=== PATIENT | male | born 1960 | race Caucasian/White ===

== ENCOUNTER 2017-04-21 07:56 | Day surgery (SDC) | payer BC, OTHER ==
--- NOTE | 2017-04-21 08:53 | PCM.PREANE ---
Preanesthetic Assessment - Anesthesia/Transfusion/Family Hx Anesthesia History: Prior Anesthesia Without Reaction Family History of Anesthesia Reaction: No Transfusion History: No Prior Transfusion(s) Intubation History: Unknown - Review of Systems General: No Symptoms Pulmonary: No Symptoms Cardiovascular: No Symptoms Gastrointestinal: No Symptoms Neurological: No Symptoms Other: Reports: None - Physical Assessment NPO Status Date: 04/20/17 NPO Status Time: 20:00 O2 Sat by Pulse Oximetry: 95 Respiratory Rate: 16 Vital Signs: Last Vital Signs Temp 36.2 C 04/21/17 07:58 Pulse 80 04/21/17 07:58 Resp 16 04/21/17 07:58 BP 120/64 04/21/17 07:58 Pulse Ox 95 04/21/17 07:58 Height: 1.78 m Weight: 122.016 kg ASA Class: 3 Mental Status: Alert & Oriented x3 Airway Class: Mallampati = 3 Dentition: Reports: Normal Dentition, Partial (upper) Thyro-Mental Finger Breadths: 3 Mouth Opening Finger Breadths: 2 ROM/Head Extension: Limited/Partial Lungs: Clear to Auscultation, Normal Respiratory Effort, Decreased Breath Sounds Cardiovascular: Regular Rate, Regular Rhythm - Allergies Allergies/Adverse Reactions: Allergies Allergy/AdvReac Type Severity Reaction Status Date / Time No Known Allergies Allergy Verified 04/19/17 11:34 - Blood Blood Available: No - Anesthesia Plan Pre-Op Medication Ordered: None - Acknowledgements Anesthesia Type Planned: General Anesthesia Pt an Appropriate Candidate for the Planned Anesthesia: Yes Alternatives and Risks of Anesthesia Discussed w Pt/Guardian: Yes Pt/Guardian Understands and Agrees with Anesthesia Plan: Yes PreAnesthesia Questionnaire HEENT History: Reports: Hard of Hearing Other HEENT History: wears glasses, has upper and lower partial dentures, [employer] [employer] [place] , has hearing aides but doesn't wear them Cardiovascular History: Reports: High Cholesterol, Hypertension Respiratory History: Reports: Sleep Apnea Other Respiratory History: uses a CPAP Gastrointestinal History: Reports: GERD Genitourinary History: Reports: None Musculoskeletal History: Reports: Arthritis Other Musculoskeletal History: knees Neurological History: Reports: None Psychiatric History: Reports: Depression Endocrine/Metabolic History: Reports: Diabetes, Type II (insulin pump), Obesity/ BMI 30+ Hematologic History: Reports: None Immunologic History: Reports: None Oncologic (Cancer) History: Reports: Malignant Melanoma Other Oncologic History: current Dermatologic History: Reports: None Other Dermatologic History: current malignant melanoma - Past Surgical History Head Surgeries/Procedures: Reports: None GI Surgical History: Reports: Appendectomy, Colonoscopy Neurological Surgical History: Reports: Laminectomy Other Dermatological Surgeries/Procedures: melanoma exc. biopsy 3-4 weeks ago from right lower leg - SUBSTANCE USE Smoking Status *Q: Current Every Day Smoker (1 ppd) Tobacco Use Within Last Twelve Months: Cigarettes Recreational Drug Use History: No - HOME MEDS Home Medications: Home Meds Aspirin [Adult Low Dose Aspirin EC] 81 mg PO DAILY 04/19/17 [History] Carvedilol 3.125 mg PO DAILY 04/19/17 [History] Diclofenac Sodium [Voltaren] 50 mg PO Q4HR PRN 04/19/17 [History] Fish Oil/[place]-3 Fatty Acids [Fish Oil 1,000 MG] 1 gm PO DAILY 04/19/17 [History ] Furosemide [Lasix] 20 mg PO DAILY 04/19/17 [History] Gabapentin [Neurontin] 300 mg PO TID 04/19/17 [History] Glucosam HCl/Chondro Benitez A/C/Mn [Glucosamine-Chondroitin Cap] 1 cap PO DAILY 05/26 [History] Insulin Isophane NPH, Human [NovoLIN N] 1 dose SQ ASDIRECTED 04/19/17 [History] Multivitamins with Iron/Min [Cerovite Jr] 1 tab PO DAILY 04/19/17 [History] Omeprazole 20 mg PO DAILY 04/19/17 [History] Pioglitazone HCl [Actos] 30 mg PO DAILY 04/19/17 [History] Telmisartan 80 mg PO DAILY 04/19/17 [History] Topiramate 25 mg PO DAILY 04/19/17 [History] atorvaSTATin Calcium [Atorvastatin Calcium] 80 mg PO DAILY 04/19/17 [History] metFORMIN [Glucophage] 500 mg PO DAILY 04/19/17 [History] - CURRENT (IN HOUSE) MEDS Current Meds: Current Medications Hydrocodone Bitart/Acetaminophen ([place] 325-5 Mg) 1 tab PO Q4H PRN PRN Reason: Pain Bupivacaine HCl/Epinephrine Bitart (Marcaine 0.25%/Epinephrine 1:200,000) 30 ml INJECT ONETIME ONE Stop: 04/21/17 09:01 Cefazolin Sodium/Dextrose 2 gm (/ Premix) 50 mls @ 100 mls/hr IV ONETIME ONE Stop: 04/21/17 10:29 Lactated Ringer's (Ringers, Lactated) 1,000 mls @ 125 mls/hr IV ASDIRECTED [facility] Last Admin: 04/21/17 08:22 Dose: 125 mls/hr
[2017-04-21] MEDS ORDERED: Acetaminophen/HYDROcodone 325-5 MG Tab PO PRN (09:00)
[2017-04-21] MEDS ORDERED: Lactated Ringers 1,000 ML IV SCH (09:00)
[2017-04-21] MEDS ORDERED: Bupivacaine 0.25%/EPINEPHrine 1:200,000 10 ML SDV INJECT ONE (09:00)
[2017-04-21] MEDS ORDERED: Bupivacaine 25%/EPINEPHrine/PF 30 ML ONE (09:50)
[2017-04-21] MEDS ORDERED: ceFAZolin 2 GM in Premix Bag 1 BAG IV ONE (10:00)
--- NOTE | 2017-04-21 11:34 | NM ---
EXAMINATION: Right lower extremity lymphoscintigraphy HISTORY: Malignant melanoma COMPARISON: None TECHNIQUE: The procedure was discussed with the patient. Site of the melanoma within the lower leg wa s prepped with ChloraPrep. A total of 7 injections were performed along the periphery of the marked b iopsy site. A total of 0.5 mCi of technetium labeled sulfur colloid was used. FINDINGS: A sentinel node is identified within the right inguinal region. IMPRESSION: Successful right lower extremity lymphoscintigraphy.
[2017-04-21] MEDS ORDERED: Methylene Blue 50 MG/10 ML Ampule ONE (11:39)
[2017-04-21] MEDS ORDERED: Lidocaine 2% 5 ML SDV ONE (11:51)
[2017-04-21] MEDS ORDERED: Midazolam 1 MG/ML 2 ML SDV ONE (11:51)
[2017-04-21] MEDS ORDERED: fentaNYL 100 MCG/2 ML SDV ONE ×2 (11:51→12:49)
[2017-04-21] MEDS ORDERED: Propofol 200 MG/20 ML SDV ONE (11:51)
[2017-04-21] MEDS ORDERED: ceFAZolin 1 GM Vial ONE (11:57)
[2017-04-21] MEDS ORDERED: Sodium Chloride 0.9% 20 ML ONE (11:57)
[2017-04-21] MEDS ORDERED: Rocuronium 10 MG/ML 10 ML Syringe ONE (12:05)
[2017-04-21] MEDS ORDERED: Succinylcholine/Normal Saline 200 MG/10 ML Syringe ONE (12:05)
[2017-04-21] MEDS ORDERED: Octyl 2-Cyanoacrylate 1 Tube ONE (13:13)
[2017-04-21] MEDS ORDERED: fentaNYL 100 MCG/2 ML SDV IVPUSH PRN (13:47)
[2017-04-21] MEDS ORDERED: Acetaminophen/HYDROcodone 325-5 MG Tab PO ONE (14:53)
[2017-04-21 16:13] VITALS: BP 110/78
--- NOTE | 2017-04-24 11:15 | PCM.OPNOTE ---
- General Post-Op/Procedure Note Date of Surgery/Procedure: 04/21/17 Operative Procedure(s): excision of right leg melanoma with 2cm margins and sentinel lymph node biopsy right groin Pre Op Diagnosis: right lower leg melanoma Post-Op Diagnosis: Same Anesthesia Technique: General LMA Primary Surgeon: Marion Eli Supervisor Shipfitters: Yamilka Gutierrez Complications: None Condition: Good Free Text/Narrative:: [id number]
--- NOTE | 2017-04-24 14:52 | OR ---
SURGEON: WILI LIU MD DATE OF PROCEDURE: 04/21/2017 DIRECTOR OF SALES SUPPORT: GEOFF Marino. PREOPERATIVE DIAGNOSIS: Right lower leg melanoma with depth of 1 mm. POSTOPERATIVE DIAGNOSIS: Right lower leg melanoma with depth of 1 mm. PROCEDURE: Excision of right leg melanoma with 2 cm margin (5x8cm), complex 8cm closure, and sentinel lymph node biopsy of the right inguinal area. INDICATION: The patient is a 57-year-old gentleman with melanoma, biopsy-proven to the right lower leg. Depth is 1 mm at maximum from the excision. Risks and benefits of excision for margins and a sentinel lymph node biopsy given the depth was discussed with him. Risks were including, but not limited to, bleeding, infection, damage to underlying or overlying structures, possible need for future interventions, possible scarring. PROCEDURE IN DETAIL: After informed consent was obtained and placed on the chart, the patient was brought to the operating theater and laid in supine position. He had been previously injected with lymphoscintigraphy dye and the groin was appreciated to be the site of the sentinel node. Radioactive tracer will be used today. Attention was first paid to the sentinel lymph node in the right groin area and the center was used to locate this. Dissection was then carried down through the skin, subcutaneous tissues, and superficial fascia in order to reach the inguinal lymph node. Dissection was carried circumferentially around this and was excised without difficulty. Levels were at the 10% dean from the original injection site indicating a strong sentinel lymph node. This was exactly where visualization demonstrated to be in Radiology. Once excised, the wound was then closed with deep Monocryl stitches and a running subcuticular for the skin. This was dressed with Steri-Strips. Attention was then paid to excision of the right lower leg melanoma. A 2 cm was marked around the lesion itself of the previous biopsy site. Once marked was adjusted to be an elliptical fashion ensuring appropriate margins on all sides and the lesion was excised using a 15 blade through the skin and subcutaneous tissue down to the superficial fascia layer of the leg. Once this was completed, this was removed, marked at the 12 o'clock margin, and sent for pathology for evaluation. Once removed, the deep fascia layer was plicated and closed using a deep 3-0 Monocryl suture for tensionless closure, 3-0 Monocryl for the deep dermis, and a 3-0 Prolene in a horizontal mattress fashion for the skin. The wound was dressed with Xeroform, fluffs, and Kerlix gauze dressing and a 6-inch Chidi wrap for compression. He tolerated this well. All counts and needles were correct at the end the case. FOLLOWUP INSTRUCTIONS: The patient will see us in clinic next week or sooner if any problems, questions, or concerns. He was given a prescription for [place]. He will leave compression on and it is okay to take the dressing off after 48 hours and shower per usual. He will leave the Steri-Strip in the upper leg. HEGGTHE / CHEYENNEL /[id number] ILSA
== END 2017-04-21 16:00 | disposition home or self-care (01) ==
LOC: MW.SDS 07:56
PROVIDERS: ATTEND Plastic Surgery
DX: C43.71 Malignant melanoma of right lower limb, including hip (principal); I10 Essential (primary) hypertension; E78.00 Pure hypercholesterolemia, unspecified; E66.9 Obesity, unspecified; Z68.30 Body mass index [BMI] 30.0-30.9, adult; G47.30 Sleep apnea, unspecified; E11.9 Type 2 diabetes mellitus without complications; Z79.82 Long term (current) use of aspirin; Z79.899 Other long term (current) drug therapy; Z90.49 Acquired absence of other specified parts of digestive tract; F17.210 Nicotine dependence, cigarettes, uncomplicated
CPT/HCPCS: 11602; 13121; 13122; 38500; 78195; 82962; A9270; A9541; J0690; J2250; J3010; J7120; 00400; 88305; J2704

== ENCOUNTER 2018-01-19 15:28 | Observation (INO) | payer OTHER, BC ==
[2018-01-19] MEDS ORDERED: Sodium Chloride 0.9% 1,000 ML IV ONE (15:38)
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
[2018-01-19] MEDS ORDERED: Bacitracin Oint 1 GM U/D Packet TOP ONE (16:15)
--- NOTE | 2018-01-19 16:24 | CT ---
EXAMINATION: Non contrast CT head. Coronal and sagittal reformats. HISTORY: Syncope FINDINGS: No evidence of intra or extra axial hemorrhage, mass, midline shift, hydrocephalus or edema. No hypoattenuation changes in the major vascular territories to suggest acute infarct. No abnormal intracranial calcifications are detected. No evidence of substantial vascular calcificat ions. Paranasal sinuses and mastoid air cells are well aerated without substantial findings. Orbits and gl obes are symmetric. Pituitary fossa appears unremarkable. Calvarium is intact. No evidence of skull fracture. IMPRESSION: No acute intracranial findings.
[2018-01-19 16:40] LABS: CHLORIDE,CL 104 mmol/L (98-107); SODIUM,NA 137 mmol/L (136-148)
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
[2018-01-19] MEDS ORDERED: Aspirin 81 MG Tab.Chew PO ONE (17:06)
[2018-01-19] MEDS ORDERED: Albuterol/Ipratropium 3.0-0.5 MG/3 ML Neb Soln NEB PRN (21:45)
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
[2018-01-20] MEDS ORDERED: Gabapentin 300 MG Cap PO SCH (09:00)
[2018-01-20] MEDS ORDERED: Carvedilol 3.125 MG Tab PO SCH (09:00)
[2018-01-20] MEDS ORDERED: Aspirin 81 MG Tab.EC PO SCH (09:00)
[2018-01-20] MEDS ORDERED: metFORMIN 500 MG Tab PO SCH (09:00)
[2018-01-20] MEDS ORDERED: LIRAGLUTIDE 0.6 MG SCH (09:00)
[2018-01-20] MEDS ORDERED: atorvaSTATin 40 MG Tab PO SCH (09:00)
[2018-01-20] MEDS ORDERED: Furosemide 20 MG Tab PO SCH (09:00)
[2018-01-20 10:51] VITALS: BP 129/70
== END 2018-01-20 10:15 | disposition home or self-care (01) ==
LOC: MW.ED 15:28 → MW.MS 17:04 → UNDODISOB 01-20 10:15
PROVIDERS: ADMIT Internal Medicine; ATTEND Internal Medicine
DX: R55 Syncope and collapse (principal); I10 Essential (primary) hypertension; E11.9 Type 2 diabetes mellitus without complications; J44.9 Chronic obstructive pulmonary disease, unspecified; F17.200 Nicotine dependence, unspecified, uncomplicated; E78.00 Pure hypercholesterolemia, unspecified; E66.9 Obesity, unspecified; G47.33 Obstructive sleep apnea (adult) (pediatric); Z79.82 Long term (current) use of aspirin; Z79.4 Long term (current) use of insulin; Z79.899 Other long term (current) drug therapy; V89.2XXA Person injured in unspecified motor-vehicle accident, traffic, initial encounter
CPT/HCPCS: 36415; 70450; 71045; 73120; 80053; 82962; 84484; 85025; 93005; 96360; 99285; A9270; G0378; J7040; 99284

== ENCOUNTER 2019-08-24 08:21 | Emergency (ER) | payer BC, OTHER ==
--- NOTE | 2019-08-24 09:30 | EDM.PDOC ---
ED HPI GENERAL MEDICAL PROBLEM - General Chief Complaint: Lower Extremity Injury/Pain Stated Complaint: RT FOOT ISSUE Time Seen by Provider: 08/24/19 09:01 Source of Information: Reports: Patient, Family - History of Present Illness INITIAL COMMENTS - FREE TEXT/NARRATIVE: Complains of noticing right toe blisters last night when he came back from work. Says he has diabetic neuropathy and cannot feel anything on the soles of his feet. He has limited sensation on the dorsum of his right foot. He does not think his shoes were too tight. His later added that he does sometimes wear his shoes with no socks. Patient says he did not bleed or have drainage from the blisters. He is on antibiotics for bronchitis but does not know the names. Review of systems is negative for fever, chills, bleeding. generalized chronic Pain Score (Numeric/FACES): 4 - Related Data Allergies Allergy/AdvReac Type Severity Reaction Status Date / Time No Known Allergies Allergy Verified 08/24/19 08:39 Home Meds: Home Meds Aspirin [Adult Low Dose Aspirin EC] 81 mg PO DAILY 04/19/17 [History] Diclofenac Sodium [Voltaren] 50 mg PO Q4HR PRN 04/19/17 [History] Fish Oil/[place]-3 Fatty Acids [Fish Oil 1,000 MG] 2 gm PO DAILY 04/19/17 [History ] Furosemide [Lasix] 20 mg PO DAILY 04/19/17 [History] Gabapentin [Neurontin] 600 mg PO BID 04/19/17 [History] Omeprazole 40 mg PO DAILY 04/19/17 [History] Telmisartan 80 mg PO DAILY 04/19/17 [History] atorvaSTATin Calcium [Atorvastatin Calcium] 80 mg PO DAILY 04/19/17 [History] carvediloL [Carvedilol] 3.125 mg PO DAILY 04/19/17 [History] metFORMIN [Glucophage] 1,500 mg PO DAILY 04/19/17 [History] Cetirizine HCl [All Day Allergy] 10 mg PO DAILY 01/19/18 [History] Cholecalciferol (Vitamin D3) [Vitamin D3] 1,000 units PO DAILY 01/19/18 [History ] Liraglutide [Victoza 3-Johnson] 0.6 mg .XX DAILY 01/19/18 [History] Multivit-Min/FA/Lycopen/Lutein [Certavite Sr with Lutein Tab] 1 each PO DAILY [History] modafiniL [Modafinil] 200 mg PO DAILY 01/19/18 [History] Past Medical History HEENT History: Reports: Hard of Hearing Other HEENT History: wears glasses, has upper and lower partial dentures, [place] , has hearing aides but doesn't wear them Cardiovascular History: Reports: High Cholesterol, Hypertension Respiratory History: Reports: Sleep Apnea Other Respiratory History: uses a CPAP Gastrointestinal History: Reports: GERD Genitourinary History: Reports: None Musculoskeletal History: Reports: Arthritis Other Musculoskeletal History: knees Neurological History: Reports: None Psychiatric History: Reports: Depression Endocrine/Metabolic History: Reports: Diabetes, Type II, Obesity/BMI 30+ Hematologic History: Reports: None Immunologic History: Reports: None Oncologic (Cancer) History: Reports: Malignant Melanoma Other Oncologic History: current Dermatologic History: Reports: None Other Dermatologic History: current malignant melanoma - Infectious Disease History Infectious Disease History: Reports: Chicken Pox, Measles - Past Surgical History Head Surgeries/Procedures: Reports: None GI Surgical History: Reports: Appendectomy, Colonoscopy, Hernia, Inguinal Neurological Surgical History: Reports: Laminectomy Social & Family History - Family History Family Medical History: Noncontributory - Tobacco Use Smoking Status *Q: Current Every Day Smoker Years of Tobacco use: 45 Packs/Tins Daily: 1 - Caffeine Use Caffeine Use: Reports: Coffee Review of Systems - Review of Systems Review Of Systems: See Below (Review of systems is negative for fever, chills, bleeding. Reports chronic decr sensation on dorsum of rt foot and chronic absence of sensation on plantar aspect of rt foot.) ED EXAM, GENERAL - Physical Exam Exam: See Below Free Text/Narrative:: General: alert, well appearing, no acute distress HEENT: Atraumatic, normocephalic, pupils reactive, negative for conjunctival pallor or scleral icterus, mucous membranes moist, throat clear, handling oral secretions well. Heart: 2+ rt DP pulse; cap refill about 2 sec in toes of rt foot. Skin: Two 1 mm ecchymoses on the solar surface of the second right toe. 1 mm ecchymosis on the dorsum of the third right toe. Two one 3 to 4 mm blood- filled blisters on the dorsum of the second right toe. There are no open ulcers. Intact. Musculoskeletal: soft compartments. Extremities: Atraumatic, negative for cords or calf pain. Neuro: Awake, alert, oriented. Able to perceive light touch on the dorsal surface of the second and third right toes. Does not perceive any light touch on the plantar surface of these toes. Course - Vital Signs Last Recorded V/S: Last Vital Signs Temp 97.5 F 08/24/19 08:37 Pulse 77 08/24/19 09:42 Resp 16 08/24/19 09:42 BP 118/70 08/24/19 09:42 Pulse Ox 93 L 08/24/19 09:42 - Orders/Labs/Meds Orders: Active Orders 24 hr Category Date Time Status Ready for Discharge [RC] PER UNIT ROUTINE Care 08/24/19 09:36 Active Departure - Departure Time of Disposition: 09:34 Disposition: Home, Self-Care 01 Condition: Good Clinical Impression: Blister - Discharge Information Instructions: Blisters, Adult Referrals: Thai Ying DPM [Ordering Only Provider] - Zuly Green MD [Primary Care Provider] - Forms: ED Department Discharge Additional Instructions: Make sure to bandage the blisters well prior to putting on socks and shoes. Use Dr. Arias's Blister Treatment bandages or other similar bandages. See a steam power plant operator within one week to discuss what shoes are best for you, given your diabetes. See your primary care provider for a recheck of your feet within 3 to 5 days of this emergency department visit. The following information is given to patients seen in the emergency department who are being discharged to home. This information is to outline your options for follow-up care. We provide all patients seen in our emergency department with a follow-up referral. The need for follow-up, as well as the timing and circumstances, are variable depending upon the specifics of your emergency department visit. If you don't have a primary care physician on staff, we will provide you with a referral. We always advise you to contact your personal physician following an emergency department visit to inform them of the circumstance of the visit and for follow-up with them and/or the need for any referrals to a consulting specialist. The emergency department will also refer you to a specialist when appropriate. This referral assures that you have the opportunity for follow-up care with a specialist. All of these measure are taken in an effort to provide you with optimal care, which includes your follow-up. Under all circumstances we always encourage you to contact your private physician who remains a resource for coordinating your care. When calling for follow-up care, please make the office aware that this follow-up is from your recent emergency room visit. If for any reason you are refused follow-up, please contact the [facility] Emergency Department at and ask to speak to the emergency department charge nurse. Sepsis Event Note - Evaluation Sepsis Screening Result: No Definite Risk - Focused Exam Vital Signs: Vital Signs Pulse Resp BP Pulse Ox 08/24/19 09:42 77 16 118/70 93 L Date Exam was Performed: 08/24/19 Time Exam was Performed: 21:16 - My Orders Last 24 Hours: My Active Orders 08/24/19 09:36 Ready for Discharge [RC] PER UNIT ROUTINE - Assessment/Plan Last 24 Hours: My Active Orders 08/24/19 09:36 Ready for Discharge [RC] PER UNIT ROUTINE
[2019-08-24 09:43] VITALS: BP 118/70; PULSE 77
== END 2019-08-24 09:49 | disposition home or self-care (01) ==
LOC: MW.ED 08:21
DX: S90.424A Blister (nonthermal), right lesser toe(s), initial encounter (principal); S90.121A Contusion of right lesser toe(s) without damage to nail, initial encounter; E78.00 Pure hypercholesterolemia, unspecified; I10 Essential (primary) hypertension; K21.9 Gastro-esophageal reflux disease without esophagitis; E66.9 Obesity, unspecified; E11.40 Type 2 diabetes mellitus with diabetic neuropathy, unspecified; F17.210 Nicotine dependence, cigarettes, uncomplicated; F32.9 Major depressive disorder, single episode, unspecified; Z90.49 Acquired absence of other specified parts of digestive tract; Z79.899 Other long term (current) drug therapy; Z79.84 Long term (current) use of oral hypoglycemic drugs; Z79.82 Long term (current) use of aspirin; Z68.37 Body mass index [BMI] 37.0-37.9, adult; X58.XXXA Exposure to other specified factors, initial encounter; Y99.0 Civilian activity done for income or pay
CPT/HCPCS: 99282; 99283

== ENCOUNTER 2023-05-10 06:32 | Inpatient (IN) | payer OTHER ==
[~2023-05-10 06:32] MED LIST: Famotidine 20 MG/2 ML SDV IVPUSH SCH; Lactated Ringers 1,000 ML IV SCH; Ropivacaine 49.25 ML, Ketorolac 30 MG, EPINEPHrine 0.5 MG, cloNIDine 80 MCG in Sodium C... INJECT SCH; Tranexamic Acid 1,000 MG in Sodium Chloride 0.9% 100 ML IV SCH; ceFAZolin 2 GM in Sodium Chloride 0.9% 50 ML IV SCH
[2023-05-10] MEDS ORDERED: Tranexamic Acid IN NACL,ISO-OS 1,000 MG in Premix Bag 1 BAG IV SCH ×2 (07:00)
[2023-05-10] MEDS ORDERED: Ropivacaine 49.25 ML, Ketorolac 30 MG, EPINEPHrine 0.5 MG, cloNIDine 80 MCG in Sodium C... INJECT SCH (07:00)
[2023-05-10] MEDS ORDERED: Ketamine 500 mg/10 ML MDV ONE (07:33)
[2023-05-10] MEDS ORDERED: Famotidine 20 MG/2 ML SDV ONE (07:33)
[2023-05-10] MEDS ORDERED: propofoL 50 ML ONE ×2 (07:33→08:55)
[2023-05-10] MEDS ORDERED: fentaNYL 100 MCG/2 ML SDV ONE (07:33)
[2023-05-10] MEDS ORDERED: Ropivacaine 0.5% 5 MG/ML 30 ML SDV ONE (07:42)
[2023-05-10] MEDS ORDERED: Albuterol 0.083% 2.5 MG/3 ML Neb Soln NEB PRN (07:46)
[2023-05-10] MEDS ORDERED: Metoclopramide 10 MG/2 ML SDV IVPUSH PRN (07:46)
[2023-05-10] MEDS ORDERED: HYDROmorphone 1 MG/ML Syringe IVPUSH PRN (07:46)
[2023-05-10] MEDS ORDERED: droPERidol 5 MG/2 ML SDV IVPUSH PRN (07:46)
[2023-05-10] MEDS ORDERED: Morphine 2 MG/ML SYRINGE IVPUSH PRN ×2 (07:46→10:33)
[2023-05-10] MEDS ORDERED: Ondansetron 4 MG/2 ML SDV IVPUSH PRN ×2 (07:46→10:33)
[2023-05-10] MEDS ORDERED: Naloxone 0.4 MG/ML SDV IVPUSH PRN (07:46)
[2023-05-10] MEDS ORDERED: fentaNYL 50 MCG/ML SDV IVPUSH PRN (07:46)
[2023-05-10] MEDS ORDERED: ceFAZolin 2 GM in Sodium Chloride 0.9% 50 ML IV SCH (08:00)
[2023-05-10] MEDS ORDERED: Tranexamic Acid 1,000 MG/10 ML Vial ONE (08:44)
[2023-05-10] MEDS ORDERED: ceFAZolin 2 GM Vial ONE (08:44)
[2023-05-10] MEDS ORDERED: Propofol 200 MG/20 ML SDV ONE ×3 (09:33→09:52)
[2023-05-10] MEDS ORDERED: ePHEDrine 50 MG/ML SDV ONE (09:42)
[2023-05-10] MEDS ORDERED: EPINEPHrine 1 MG/1 ML Amp ONE (09:42)
[2023-05-10] MEDS ORDERED: Water For Injection, Sterile 40 ML ONE (09:50)
[2023-05-10] MEDS ORDERED: traMADol 50 MG Tab PO PRN (10:33)
[2023-05-10] MEDS ORDERED: diphenhydrAMINE 25 MG Cap PO PRN (10:33)
[2023-05-10] MEDS ORDERED: Sodium Chloride 0.9% 2.5 ML Syringe FLUSH PRN (10:33)
[2023-05-10] MEDS ORDERED: Aluminum Hydroxide/Magnesium Hydroxide/Simethicone XS Susp 30 ML Cup PO PRN (10:33)
[2023-05-10] MEDS ORDERED: Sodium Chloride 0.9% 10 ML Syringe FLUSH PRN (10:33)
[2023-05-10] MEDS: Acetaminophen 325 MG Tab PO SCH ×3 (14:44→20:52)
[2023-05-10] MEDS: oxyCODONE 5 MG Tab PO PRN ×2 (14:45→19:32)
[2023-05-10] MEDS ORDERED: INSULIN ASPART 100 UNIT/ML SUBCUT SCH (15:00)
[2023-05-10] MEDS ORDERED: [UNRECOGNIZED DRUG - OTHER] SUBCUT SCH (15:00)
[2023-05-10 15:06] LABS: CALCIUM 8.5 mg/dL (8.5-10.1); CARBON DIOXIDE,CO2 22.9 mmol/L (21.0-32.0); CREATININE 1.8 mg/dL (0.8-1.3); EST CRCL DRUG DOSING (CG) 42.81 mL/min; POTASSIUM,K 4.9 mmol/L (3.5-5.1)
[2023-05-10] MEDS: ceFAZolin 2 GM in Sodium Chloride 0.9% 50 ML IV SCH (15:29)
[2023-05-10] MEDS: Metoprolol Tartrate 50 MG Tab PO SCH (20:50)
[2023-05-10] MEDS: Docusate Sodium 100 MG Cap PO SCH (20:50)
[2023-05-10] MEDS: Gabapentin 300 MG Cap PO SCH (20:51)
[2023-05-10] MEDS: Aspirin 325 MG Tab PO SCH (20:56)
[2023-05-10] MEDS ORDERED: atorvaSTATin 40 MG Tab PO SCH (21:00)
[2023-05-11] MEDS: oxyCODONE 5 MG Tab PO PRN ×3 (00:20→09:25)
[2023-05-11] MEDS: Acetaminophen 325 MG Tab PO SCH ×3 (00:21→09:24)
[2023-05-11] MEDS: ceFAZolin 2 GM in Sodium Chloride 0.9% 50 ML IV SCH (00:22)
[2023-05-11 06:09] LABS: BASOPHILS ABSOLUTE AUTO 0.03 K/uL (0.00-0.20); BASOPHILS PERCENT AUTO 0.4 % (0.0-1.0); EOSINOPHILS ABSOLUTE AUTO 0.31 K/uL (0.00-0.45); EOSINOPHILS PERCENT AUTO 4.3 % (0.0-6.0); HEMATOCRIT 34.7 % (42.0-52.0); HEMOGLOBIN 11.7 g/dL (14.0-18.0); IMMATURE GRAN ABSOLUTE AUTO 0.03 K/uL (0.00-0.05); IMMATURE GRAN PERCENT AUTO 0.4 % (0.0-0.4); LYMPHOCYTES ABSOLUTE AUTO 1.28 K/uL (1.00-4.80); LYMPHOCYTES PERCENT AUTO 17.6 % (24.0-44.0); MEAN CORPUSCULAR HEMOGLOBIN 29.8 pg (28.0-32.0); MEAN CORPUSCULAR HGB CONC 33.7 g/dL (32.0-36.0); MEAN CORPUSCULAR VOLUME 88.3 fL (83.0-99.0); MEAN PLATELET VOLUME 10.1 fL (9.4-12.4); MONOCYTES ABSOLUTE AUTO 0.79 K/uL (0.00-0.80); MONOCYTES PERCENT AUTO 10.9 % (0.0-8.0); NEUTROPHILS ABSOLUTE AUTO 4.83 K/uL (1.80-7.70); NEUTROPHILS PERCENT AUTO 66.4 % (41.0-71.0); PLATELET COUNT,PLT 143 K/uL (150-400); RED BLOOD CELL COUNT 3.93 M/uL (4.52-5.90); WHITE BLOOD CELL COUNT,WBC 7.27 K/uL (3.9-11.3)
[2023-05-11 06:25] LABS: CALCIUM 8.5 mg/dL (8.5-10.1); CARBON DIOXIDE,CO2 22.4 mmol/L (21.0-32.0); CREATININE 1.7 mg/dL (0.8-1.3); EST CRCL DRUG DOSING (CG) 45.33 mL/min; POTASSIUM,K 4.8 mmol/L (3.5-5.1)
[2023-05-11] MEDS ORDERED: Omeprazole 20 MG Cap.CR PO SCH (07:30)
[2023-05-11] MEDS ORDERED: TELMISARTAN 40 MG PO SCH (09:00)
[2023-05-11] MEDS ORDERED: Polyethylene Glycol 3350 Powder 17 GM Packet PO SCH (09:00)
[2023-05-11] MEDS ORDERED: Famotidine 20 MG Tab PO SCH (09:00)
[2023-05-11] MEDS: Aspirin 325 MG Tab PO SCH (09:26)
[2023-05-11] MEDS: Gabapentin 300 MG Cap PO SCH (09:26)
[2023-05-11] MEDS: Docusate Sodium 100 MG Cap PO SCH (09:27)
[2023-05-11] MEDS: Metoprolol Tartrate 50 MG Tab PO SCH (09:27)
[2023-05-11] MEDS ORDERED: Metoprolol Tartrate 50 MG Tab PO SCH (10:30)
[2023-05-11 13:34] VITALS: BP 134/68; PULSE 74
== END 2023-05-11 10:47 | disposition home or self-care (01) | DRG 470 ==
LOC: MW.SDS 06:32 → MW.MS 12:20
PROVIDERS: ADMIT Orthopaedic Surgery; ATTEND Orthopaedic Surgery
PROC: 0SRD0J9 Replacement of Left Knee Joint with Synthetic Substitute, Cemented, Open Approach (ICD-10-PCS; principal; 2023-05-10 08:00)
DX: M17.12 Unilateral primary osteoarthritis, left knee (principal); I10 Essential (primary) hypertension; G47.33 Obstructive sleep apnea (adult) (pediatric); J44.9 Chronic obstructive pulmonary disease, unspecified; E11.40 Type 2 diabetes mellitus with diabetic neuropathy, unspecified; E78.00 Pure hypercholesterolemia, unspecified; G89.29 Other chronic pain; M54.50 Low back pain, unspecified; E66.9 Obesity, unspecified; H91.90 Unspecified hearing loss, unspecified ear; K21.9 Gastro-esophageal reflux disease without esophagitis; F17.210 Nicotine dependence, cigarettes, uncomplicated; Z98.890 Other specified postprocedural states; Z88.8 Allergy status to other drugs, medicaments and biological substances; Z90.49 Acquired absence of other specified parts of digestive tract; Z83.3 Family history of diabetes mellitus; Z79.82 Long term (current) use of aspirin; Z79.4 Long term (current) use of insulin; Z79.899 Other long term (current) drug therapy; Z86.010 Personal history of colon polyps; Z68.35 Body mass index [BMI] 35.0-35.9, adult; Z96.41 Presence of insulin pump (external) (internal)
CPT/HCPCS: 01402; 36415; 73560-26-LT; 73560-LT; 80048; 82947; 85025; 86850; 86900; 86901; 97162-GP; 99221; A9270-GY; C1776; J0171; J0690; J0735; J1885; J2704; J2795; J3010; J3490; J7120